=== PATIENT | male | born 1960 | race Caucasian/White ===

== ENCOUNTER 2016-11-10 08:54 | Inpatient (IN) | payer MEDICAID ==
[~2016-11-10] VITALS: Ht 172.7 cm; Wt 68.0 kg
[2016-11-10] MEDS ORDERED: TdaP Vaccine 0.5ml Syr IM ONE (09:00)
[2016-11-10 09:30] VITALS: BP 123/83
--- NOTE | 2016-11-10 09:32 | Emergency Room Report ---
History of Present Illness General Chief Complaint: Alcohol Intoxication Source: Patient Present Illness [facility] paramedics were called to a business because a man in front of business was altered. Downgraded to [facility] and brought patient to us. They claim that the patient denies all symptoms. He's been drinking alcohol. The patient does deny pain, headache, seizures, vomiting, diarrhea, melena, chest pain, cough. He will not state what he drinks and how much. He does admit that he has been drinking alcohol. He also states he is hungry. Allergies: Coded Allergies: No Known Allergies (Unverified , 11/10/16) Patient History Past Medical History: see triage record Social History: Reports: alcohol use Social History Narrative homeless Reviewed Nursing Documentation: PMH: Agreed, PSxH: Agreed Nursing Documentation-PMH Past Medical History: No Stated History Review of Systems All Other Systems: limited Physical Exam Vital Signs Date Time Temp Pulse Resp B/P Pulse Ox O2 Delivery O2 Flow Rate FiO2 11/10/16 08:52 95.7 67 18 98/9 94 Room Air Sp02 EP Interpretation: reviewed, normal General Appearance: no apparent distress, alert, non-toxic, other - dishevelled , Chronically Ill Head: normocephalic, other - old scab nose Eyes: bilateral eye PERRL, bilateral eye Scleral Injection ENT: moist mucus membranes Neck: supple Respiratory: chest non-tender, lungs clear, normal breath sounds Cardiovascular #1: regular rate, rhythm Cardiovascular #2: 2+ radial (R) Gastrointestinal: normal inspection, normal bowel sounds, non tender, no mass, non-distended Rectal: heme negative stool Musculoskeletal: back normal, normal range of motion Neurologic: alert, motor strength/tone normal, SLR negative, sensory intact, speech normal, oriented - OX2 Psychiatric: depressed affect Skin: pallor, other - scabetic lesions Procedures Critical Care Time Critical Care Time Total Critical Care Time: 30 min bedside evaluation and treatment excludes procedures (EKG). Reason for critical care: profound anemia, alcohol withdrawal, repeated evaluations. Possible complications: hypotension, hypertension, IA, shock, arrhythmias, metabolic acidosis, end organ damage, respiratory failure. Interventions: IV hydration, thiamine, blood transfusion Course: Patient presents with ALOC and alleged alcohol intoxication. Evaluation reveals profound anemia with negative stools. Treated with IV hydration and blood ordered. Transfused in ED. Tolerated blood. Some improvement. Patient risk for withdrawal. Consultations: nursing staff, EMS, blood bank, admitting MD Performed by: Dr. Orlando Tolerated well condition = serious Medical Decision Making Diagnostic Impression: Primary Impression: Profound anemia Qualified Codes: D64.9 - Anemia, unspecified Additional Impressions: Acute alcoholic intoxication Qualified Codes: F10.929 - Alcohol use, unspecified with intoxication, unspecified Scabies ER Course Patient brought with alleged alcohol intoxication. DDx: alcohol, head trauma, electrolyte abnormalities, withdrawal, Wernicke's encephalopathy amongst others. Evaluation with EKG, CT, CXR, labs. Treatment with IV hydration and thiamine. Patient also treated for scabies. Also tetanus given. Labs with profound anemia. Start to set up for transfusions though repeating lab. Platelets normal. K slightly low. BA 108. Patient without evidence of GI blood loss at this time. Transfusing patient. Improved mentation. Eating. Admit [facility] Dr. Aleman. Laboratory Tests Test 11/10/16 10:00 11/10/16 12:15 Erythrocyte Sedimentation Rate 145 MM/HR (0-20) H Reticulocyte Count 3.0 % (0.0-2.0) H Prothrombin Time 12.2 SEC (9.30-11.50) H Prothrombin Time INR 1.2 (0.9-1.1) H PTT 31 SEC (23-33) Sodium Level 135 mEQ/L (135-145) Potassium Level 3.1 mEQ/L (3.4-4.9) L Chloride Level 95 mEQ/L (98-107) L Carbon Dioxide Level 27 mEQ/L (20-30) Anion Gap 13 (5-15) Blood Urea Nitrogen 10 mg/dL (7-23) Creatinine 0.9 mg/dL (0.7-1.2) Estimate Glomerular Filtration Rate > 60 mL/min (>60) Glucose Level 91 mg/dL (74-106) Calcium Level 8.2 mg/dL (8.6-10.2) L Iron Level < 10 ug/dL (59-158) L Total Iron Binding Capacity 240 ug/dL (250-400) L Percent Iron Saturation 4 % (15-50) L Unsaturated Iron Binding 230 ug/dL (112-346) Total Bilirubin < 0.2 mg/dL (0.0-1.2) Aspartate Amino Transferase (AST) 112 U/L (5-40) H Alanine Aminotransferase (ALT) 53 U/L (3-41) H Alkaline Phosphatase 132 U/L (40-129) H Lactate Dehydrogenase 368 U/L (135-230) H Total Protein 6.8 g/dL (6.6-8.7) Albumin 2.2 g/dL (3.5-5.2) L Globulin 4.6 g/dL Albumin/Globulin Ratio 0.4 (1.0-2.7) L Carcinoembryonic Antigen 5.9 ng/mL H Vitamin B12 Level 771 pg/mL (211-946) Folate Pending Salicylates Level < 1 mg/dL (10-30) L Acetaminophen Level < 10 ug/mL (10-30) L Serum Alcohol 108 mg/dL White Blood Count 8.3 K/UL (4.8-10.8) Red Blood Count 1.56 M/UL (4.70-6.10) L Hemoglobin 4.4 G/DL (14.2-18.0) *L Hematocrit 15.1 % (42.0-52.0) L Mean Corpuscular Volume 97 FL (80-99) Mean Corpuscular Hemoglobin 28.1 PG (27.0-31.0) Mean Corpuscular Hemoglobin Concent 29.1 G/DL (32.0-36.0) L Red Cell Distribution Width 15.7 % (11.6-14.8) H Platelet Count 338 K/UL (150-450) Mean Platelet Volume 6.0 FL (6.5-10.1) L Neutrophils (%) (Auto) % (45.0-75.0) Lymphocytes (%) (Auto) % (20.0-45.0) Monocytes (%) (Auto) % (1.0-10.0) Eosinophils (%) (Auto) % (0.0-3.0) Basophils (%) (Auto) % (0.0-2.0) Differential Total Cells Counted 100 Neutrophils % (Manual) 77 % (45-75) H Lymphocytes % (Manual) 13 % (20-45) L Monocytes % (Manual) 3 % (1-10) Eosinophils % (Manual) 7 % (0-3) H Basophils % (Manual) 0 % (0-2) Band Neutrophils 0 % (0-8) Platelet Estimate Adequate Platelet Morphology Normal Hypochromasia 3+ Anisocytosis 1+ EKG Diagnostic Results Rate: normal Rhythm: NSR ST Segments: other - R axis Rhythm Strip Diag. Results EP Interpretation: yes Rhythm: NSR, no PVC's, no ectopy Chest X-Ray Diagnostic Results EP Interpretation: Yes Findings: no effusion, no pneumothorax, other - scarring and increased bravo R` ` Number of Views: 1 Last Vital Signs Date Time Temp Pulse Resp B/P Pulse Ox O2 Delivery O2 Flow Rate FiO2 11/11/16 00:00 98 11/11/16 00:00 98.3 16 94/57 96 Room Air Status: improved Disposition: ADMITTED INPATIENT Condition: Serious Referrals: NON PHYSICIAN (PCP) Sarath Orlando M.D. November 10, 2016 09:32
--- NOTE | 2016-11-10 10:17 | Diagnostic Imaging Report ---
Indications: Altered mental status Technique: Spiral acquisitions obtained through the brain. Angled axial and coronal 5 x 5 mm slices were reconstructed. Total dose length product 1393 mGycm. CTDI vol(s) 70 mGy. Dose reduction achieved using automated exposure control Comparison: None Findings: No acute intracranial hemorrhage or edema, mass effect, or midline shift. There is prominence of the ventricles and extra-axial CSF spaces, to proportion to age. There is periventricular deep white matter chronic ischemic change. Intact calvarium. Visualized orbits and sinuses are unremarkable. Impression: Chronic and age-related changes, advanced for patient's age. Negative for acute intracranial bleed or mass effect. The CT scanner at [facility] is accredited by the [employer] and the scans are performed using protocols designed to limit radiation exposure to as low as reasonably achievable to attain images of sufficient resolution adequate for diagnostic evaluation.
[2016-11-10 11:23] LABS: ACETAMINOPHEN < 10 ug/mL (10-30); ALANINE AMINOTRANSFERASE 53 U/L (3-41); ALBUMIN/GLOBULIN RATIO 0.4 (1.0-2.7); ALCOHOL 108 mg/dL; ANION GAP 13 (5-15); ASPARTATE AMINO TRANSFERASE 112 U/L (5-40); CALCIUM 8.2 mg/dL (8.6-10.2); CARBON DIOXIDE 27 mEQ/L (20-30); CHLORIDE 95 mEQ/L (98-107); CREATININE 0.9 mg/dL (0.7-1.2); GLOMERULAR FILTRATION RATE > 60 mL/min (>60); HEMOLYSIS 0; POTASSIUM 3.1 mEQ/L (3.4-4.9); SODIUM 135 mEQ/L (135-145); TOTAL PROTEIN 6.8 g/dL (6.6-8.7)
[2016-11-10] MEDS ORDERED: Thiamine HCl 100mg/ml Inj ONE (11:34)
[2016-11-10] MEDS: Thiamine HCl 100 MG in D5W 55 ML IVPB SCH (11:35)
[2016-11-10 12:15] VITALS: BP 92/60
[2016-11-10 12:27] LABS: MEAN CORPUSCULAR HEMOGLOBIN 28.1 PG (27.0-31.0); MEAN CORPUSCULAR HGB CONC 29.1 G/DL (32.0-36.0); MEAN CORPUSCULAR VOLUME 97 FL (80-99); PLATELET COUNT 338 K/UL (150-450); RED BLOOD COUNT 1.56 M/UL (4.70-6.10); RED CELL DISTRIBUTION WIDTH 15.7 % (11.6-14.8); WHITE BLOOD COUNT 8.3 K/UL (4.8-10.8)
[2016-11-10] MEDS ORDERED: NKM (12:44)
[2016-11-10 12:54] LABS: EOSINOPHILS % (MANUAL) 7 % (0-3); LYMPHOCYTES % (MANUAL) 13 % (20-45); NEUTROPHILS % (MANUAL) 77 % (45-75); TOTAL CELLS COUNTED 100
[2016-11-10 12:55] LABS: BAND NEUTROPHILS % (MANUAL) 0 % (0-8); BASOPHILS % (MANUAL) 0 % (0-2); HYPOCHROMASIA 3+; PLATELET ESTIMATE ADEQUATE; PLATELET MORPHOLOGY NORMAL
[2016-11-10 12:56] LABS: ANISOCYTOSIS 1+
[2016-11-10] MEDS ORDERED: LORazepam Inj 2mg/ml 1ml IV PRN (13:15)
[2016-11-10] MEDS ORDERED: Mylanta II UD 30ml ORAL PRN (13:15)
[2016-11-10] MEDS ORDERED: Morphine Sulfate 2mg/ml Inj IVP PRN (13:15)
[2016-11-10 13:29] LABS: INR 1.2 (0.9-1.1); PROTHROMBIN TIME 12.2 SEC (9.30-11.50)
[2016-11-10 13:38] LABS: PATH BLOOD SMEAR/OMC SENT TO PATHOLOGIST
[2016-11-10 14:05] LABS: HEMOLYSIS 0; IRON < 10 ug/dL (59-158); TOTAL IRON BINDING CAPACITY 240 ug/dL (250-400)
[2016-11-10 14:29] LABS: ERYTHROCYTE SEDIMENTATION RATE 145 MM/HR (0-20)
[2016-11-10 15:26] LABS: LACTATE DEHYDROGENASE 368 U/L (135-230)
[2016-11-10 17:30] VITALS: BP 133/65
[2016-11-10] MEDS ORDERED: KCl 10% 40mEq/30ml liquid ORAL ONE (18:30)
--- NOTE | 2016-11-10 19:08 | History and Physical ---
History of Present Illness General Reason for Hospitalization: Alcohol Intoxication Present Illness HPI 56 year old homeless male brought in by paramedics for was altered level of consciousness. He's been drinking alcohol. His hem was 4. He is admitted to [facility] for further evaluation. Allergies: Coded Allergies: No Known Allergies (Unverified , 11/10/16) Medication History Scheduled No Known Medications* (NKM - No Known Medications*), 0 ., (Reported) Patient History Healthcare decision maker Resuscitation status Full Code Advanced Directive on File No Past Medical/Surgical History Past Medical/Surgical History: (1) Homelessness Review of Systems All Other Systems: negative except mentioned in HPI Physical Exam General Appearance: WD/WN Lines, tubes and drains: peripheral HEENT: normocephalic, anicteric Neck: non-tender, normal alignment Respiratory/Chest: chest wall non-tender, lungs clear Cardiovascular/Chest: normal peripheral pulses, normal rate Abdomen: normal bowel sounds, non tender Genitourinary/Rectal: normal genital exam, normal rectal exam Last 24 Hour Vital Signs Date Time Temp Pulse Resp B/P Pulse Ox O2 Delivery O2 Flow Rate FiO2 11/10/16 17:30 98.2 102 18 133/65 96 Room Air 11/10/16 17:30 98 11/10/16 16:51 96 16 104/60 98 11/10/16 14:00 98.7 96 20 11/10/16 12:15 101 18 92/60 99 Room Air 11/10/16 09:30 79 18 123/83 99 Room Air 11/10/16 08:52 95.7 67 18 98/9 94 Room Air Laboratory Tests Test 11/10/16 10:00 11/10/16 12:15 Erythrocyte Sedimentation Rate 145 MM/HR (0-20) H Reticulocyte Count 3.0 % (0.0-2.0) H Prothrombin Time 12.2 SEC (9.30-11.50) H Prothromb Time International Ratio 1.2 (0.9-1.1) H Activated Partial Thromboplast Time 31 SEC (23-33) Sodium Level 135 mEQ/L (135-145) Potassium Level 3.1 mEQ/L (3.4-4.9) L Chloride Level 95 mEQ/L (98-107) L Carbon Dioxide Level 27 mEQ/L (20-30) Anion Gap 13 (5-15) Blood Urea Nitrogen 10 mg/dL (7-23) Creatinine 0.9 mg/dL (0.7-1.2) Estimat Glomerular Filtration Rate > 60 mL/min (>60) Glucose Level 91 mg/dL (74-106) Calcium Level 8.2 mg/dL (8.6-10.2) L Iron Level < 10 ug/dL (59-158) L Total Iron Binding Capacity 240 ug/dL (250-400) L Percent Iron Saturation 4 % (15-50) L Unsaturated Iron Binding 230 ug/dL (112-346) Total Bilirubin < 0.2 mg/dL (0.0-1.2) Aspartate Amino Transf (AST/SGOT) 112 U/L (5-40) H Alanine Aminotransferase (ALT/SGPT) 53 U/L (3-41) H Alkaline Phosphatase 132 U/L (40-129) H Lactate Dehydrogenase 368 U/L (135-230) H Total Protein 6.8 g/dL (6.6-8.7) Albumin 2.2 g/dL (3.5-5.2) L Globulin 4.6 g/dL Albumin/Globulin Ratio 0.4 (1.0-2.7) L Carcinoembryonic Antigen 5.9 ng/mL H Vitamin B12 Level 771 pg/mL (211-946) Folate Pending Salicylates Level < 1 mg/dL (10-30) L Acetaminophen Level < 10 ug/mL (10-30) L Serum Alcohol 108 mg/dL White Blood Count 8.3 K/UL (4.8-10.8) Red Blood Count 1.56 M/UL (4.70-6.10) L Hemoglobin 4.4 G/DL (14.2-18.0) *L Hematocrit 15.1 % (42.0-52.0) L Mean Corpuscular Volume 97 FL (80-99) Mean Corpuscular Hemoglobin 28.1 PG (27.0-31.0) Mean Corpuscular Hemoglobin Concent 29.1 G/DL (32.0-36.0) L Red Cell Distribution Width 15.7 % (11.6-14.8) H Platelet Count 338 K/UL (150-450) Mean Platelet Volume 6.0 FL (6.5-10.1) L Neutrophils (%) (Auto) % (45.0-75.0) Lymphocytes (%) (Auto) % (20.0-45.0) Monocytes (%) (Auto) % (1.0-10.0) Eosinophils (%) (Auto) % (0.0-3.0) Basophils (%) (Auto) % (0.0-2.0) Differential Total Cells Counted 100 Neutrophils % (Manual) 77 % (45-75) H Lymphocytes % (Manual) 13 % (20-45) L Monocytes % (Manual) 3 % (1-10) Eosinophils % (Manual) 7 % (0-3) H Basophils % (Manual) 0 % (0-2) Band Neutrophils 0 % (0-8) Platelet Estimate Adequate Platelet Morphology Normal Hypochromasia 3+ Anisocytosis 1+ Height (Feet): 5 Height (Inches): 8.00 Weight (Pounds): 150 Medications Current Medications Medications (Trade) Dose Ordered Sig/Courtney Route PRN Reason Start Time Stop Time Status Last Admin Dose Admin Acetaminophen (Tylenol) 650 mg Q4H PRN ORAL T>100.5 11/10/16 13:15 12/10/16 13:14 Al Hydroxide/Mg Hydroxide (Mylanta II) 30 ml Q6H PRN ORAL dyspepsia 11/10/16 13:15 12/10/16 13:14 Dextrose (Dextrose 50%) STAT PRN IV Hypoglycemia 11/10/16 13:15 12/10/16 13:14 Lorazepam (Ativan 2mg/ml 1ml) 0.5 mg Q4H PRN IV For Anxiety 11/10/16 13:15 11/17/16 13:14 Morphine Sulfate (Morphine Sulfate) 1 mg Q4H PRN IVP PAIN 4-10 11/10/16 13:15 11/17/16 13:14 Ondansetron HCl (Zofran) 4 mg Q6H PRN IVP Nausea & Vomiting 11/10/16 14:00 12/10/16 13:59 Polyethylene Glycol (Miralax) 17 gm HSPRN PRN ORAL Constipation 11/10/16 21:00 12/10/16 20:59 Sodium Chloride (Sodium Chloride 1000ml bag) 1,000 ml @ 300 mls/hr Q3H20M IV 11/10/16 09:00 12/10/16 08:59 11/10/16 11:35 Thiamine HCl 100 mg/Dextrose 56 ml @ 112 mls/hr Q24H IVPB 11/10/16 09:00 12/10/16 08:59 11/10/16 11:35 Zolpidem Tartrate (Ambien) 5 mg HSPRN PRN ORAL Insomnia 11/10/16 21:00 12/10/16 20:59 Assessment/Plan Problem List: (1) Profound anemia ICD Codes: D64.9 - Anemia, unspecified SNOMED: [id number] Qualifiers: Qualified Codes: D64.9 - Anemia, unspecified (2) Acute alcoholic intoxication ICD Codes: F10.929 - Alcohol use, unspecified with intoxication, unspecified SNOMED: 35670689, [id number], [id number] Qualifiers: Qualified Codes: F10.929 - Alcohol use, unspecified with intoxication, unspecified Assessment/Plan prbc check h/h in am 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 banana bag thiamine and Librium AMENA CLARK November 10, 2016 19:08
[2016-11-10 19:58] VITALS: BP 122/62
[2016-11-10] MEDS ORDERED: Zolpidem 5mg tab ORAL PRN (21:00)
[2016-11-10] MEDS ORDERED: Miralax 17gm pkt ORAL PRN (21:00)
[2016-11-11] VITALS: BP 94/57
[2016-11-11 04:00] VITALS: BP 110/65
[2016-11-11 08:00] VITALS: BP 106/64
--- NOTE | 2016-11-11 10:12 | Pulmonology Progress Note ---
Assessment/Plan Problems: (1) Profound anemia (2) Acute alcoholic intoxication (3) Homelessness Assessment/Plan prbc times three banana bag, thiamine, folic acid social sciences research scientist pt/ot dc planning Subjective ROS Limited/Unobtainable: No Allergies: Coded Allergies: No Known Allergies (Unverified , 11/10/16) Objective Last 24 Hour Vital Signs Date Time Temp Pulse Resp B/P Pulse Ox O2 Delivery O2 Flow Rate FiO2 11/11/16 08:00 95 11/11/16 08:00 98.2 94 18 106/64 96 Room Air 11/11/16 04:00 96 11/11/16 04:00 98.4 96 18 110/65 96 Room Air 11/11/16 00:00 98 11/11/16 00:00 98.3 97 16 94/57 96 Room Air 11/10/16 19:58 98.4 96 18 122/62 95 Room Air 11/10/16 19:47 95 11/10/16 17:30 98.2 102 18 133/65 96 Room Air 11/10/16 17:30 98 11/10/16 16:51 96 16 104/60 98 11/10/16 14:00 98.7 96 20 11/10/16 13:40 97.2 90 17 11/10/16 12:15 101 18 92/60 99 Room Air Intake and Output 11/10/16 11/11/16 19:00 07:00 Intake Total 400 ml 100 ml Output Total 450 ml Balance 400 ml -350 ml Intake Oral 50 ml 100 ml IV Total 50 ml Blood Product 300 ml Output Urine Total 450 ml # Voids 1 Objective General Appearance: WD/WN Lines, tubes and drains: peripheral HEENT: normocephalic, anicteric Neck: non-tender, normal alignment Respiratory/Chest: chest wall non-tender, lungs clear Cardiovascular/Chest: normal peripheral pulses, normal rate Abdomen: normal bowel sounds, non tender Genitourinary/Rectal: normal genital exam, normal rectal exam Laboratory Tests 11/10/16 12:15: White Blood Count 8.3, Red Blood Count 1.56L, Hemoglobin 4.4*L, Hematocrit 15.1L , Mean Corpuscular Volume 97, Mean Corpuscular Hemoglobin 28.1, Mean Corpuscular Hemoglobin Concent 29.1L, Red Cell Distribution Width 15.7H, Platelet Count 338, Mean Platelet Volume 6.0L, Neutrophils (%) (Auto) , Lymphocytes (%) (Auto) , Monocytes (%) (Auto) , Eosinophils (%) (Auto) , Basophils (%) (Auto) , Differential Total Cells Counted 100, Neutrophils % ( Manual) 77H, Lymphocytes % (Manual) 13L, Monocytes % (Manual) 3, Eosinophils % ( Manual) 7H, Basophils % (Manual) 0, Band Neutrophils 0, Platelet Estimate Adequate, Platelet Morphology Normal, Hypochromasia 3+, Anisocytosis 1+ Current Medications Medications (Trade) Dose Ordered Sig/Courtney Route PRN Reason Start Time Stop Time Status Last Admin Dose Admin Acetaminophen (Tylenol) 650 mg Q4H PRN ORAL T>100.5 11/10/16 13:15 12/10/16 13:14 Al Hydroxide/Mg Hydroxide (Mylanta II) 30 ml Q6H PRN ORAL dyspepsia 11/10/16 13:15 12/10/16 13:14 Dextrose (Dextrose 50%) STAT PRN IV Hypoglycemia 11/10/16 13:15 12/10/16 13:14 Lorazepam (Ativan 2mg/ml 1ml) 0.5 mg Q4H PRN IV For Anxiety 11/10/16 13:15 11/17/16 13:14 Morphine Sulfate (Morphine Sulfate) 1 mg Q4H PRN IVP PAIN 4-10 11/10/16 13:15 11/17/16 13:14 Ondansetron HCl (Zofran) 4 mg Q6H PRN IVP Nausea & Vomiting 11/10/16 14:00 12/10/16 13:59 Polyethylene Glycol (Miralax) 17 gm HSPRN PRN ORAL Constipation 11/10/16 21:00 12/10/16 20:59 Thiamine HCl/ Dextrose (Vitamin B1/D5W) 56 ml @ 112 mls/hr Q24H IVPB 11/10/16 09:00 12/10/16 08:59 11/10/16 11:35 Zolpidem Tartrate (Ambien) 5 mg HSPRN PRN ORAL Insomnia 11/10/16 21:00 12/10/16 20:59 11/11/16 00:53 AMENA CLARK November 11, 2016 10:12
[2016-11-11] MEDS ORDERED: chlordiazePOXIDE 25mg Cap ORAL PRN ×2 (10:15→17:30)
[2016-11-11] MEDS: Thiamine HCl 100 MG in D5W 55 ML IVPB SCH (10:23)
[2016-11-11 10:25] LABS: MEAN CORPUSCULAR HEMOGLOBIN 29.3 PG (27.0-31.0); MEAN CORPUSCULAR HGB CONC 32.8 G/DL (32.0-36.0); MEAN CORPUSCULAR VOLUME 89 FL (80-99); MEAN PLATELET VOLUME 6.1 FL (6.5-10.1); PLATELET COUNT 286 K/UL (150-450); RED BLOOD COUNT 2.84 M/UL (4.70-6.10); RED CELL DISTRIBUTION WIDTH 15.1 % (11.6-14.8); WHITE BLOOD COUNT 10.6 K/UL (4.8-10.8)
[2016-11-11 10:30] LABS: INR 1.2 (0.9-1.1); PROTHROMBIN TIME 12.1 SEC (9.30-11.50)
[2016-11-11 10:47] LABS: ALANINE AMINOTRANSFERASE 55 U/L (3-41); ALBUMIN/GLOBULIN RATIO 0.5 (1.0-2.7); ANION GAP 12 (5-15); ASPARTATE AMINO TRANSFERASE 121 U/L (5-40); CARBON DIOXIDE 27 mEQ/L (20-30); CHLORIDE 97 mEQ/L (98-107); CREATININE 0.9 mg/dL (0.7-1.2); GLOMERULAR FILTRATION RATE > 60 mL/min (>60); HEMOLYSIS 0; POTASSIUM 3.5 mEQ/L (3.4-4.9); SODIUM 136 mEQ/L (135-145); TOTAL PROTEIN 6.8 g/dL (6.6-8.7)
[2016-11-11 10:48] LABS: HEMOLYSIS 1; IRON 98 ug/dL (59-158); TOTAL IRON BINDING CAPACITY 218 ug/dL (250-400)
--- NOTE | 2016-11-11 10:51 | Diagnostic Imaging Report ---
Indication: Chest pain Technique: One view of the chest Comparison: none Findings: Questionable tiny calcified granuloma in the left midlung. Lungs and pleural spaces are otherwise clear. Heart size is normal. Impression: Questionable left midlung old granulomatous disease. No acute process otherwise
[2016-11-11 11:18] LABS: ANISOCYTOSIS 1+; BAND NEUTROPHILS % (MANUAL) 0 % (0-8); BASOPHILS % (MANUAL) 0 % (0-2); EOSINOPHILS % (MANUAL) 1 % (0-3); HYPOCHROMASIA 1+; LYMPHOCYTES % (MANUAL) 7 % (20-45); NEUTROPHILS % (MANUAL) 86 % (45-75); PLATELET ESTIMATE ADEQUATE; PLATELET MORPHOLOGY NORMAL; POLYCHROMASIA OCCASIONAL; TOTAL CELLS COUNTED 100
[2016-11-11 11:19] LABS: PATH BLOOD SMEAR/OMC SENT TO PATHOLOGIST; RETICULOCYTE COUNT 1.7 % (0.0-2.0)
[2016-11-11 11:31] LABS: ERYTHROCYTE SEDIMENTATION RATE 100 MM/HR (0-20)
[2016-11-11 12:00] VITALS: BP 109/73
[2016-11-11] MEDS ORDERED: MVI IV SCH ×4 (12:00)
[2016-11-11] MEDS ORDERED: [UNRECOGNIZED DRUG - OTHER] IV SCH ×4 (12:00)
[2016-11-11] MEDS ORDERED: FOLIC ACID IV SCH ×4 (12:00)
[2016-11-11] MEDS ORDERED: KCL IV SCH ×4 (12:00)
[2016-11-11] MEDS ORDERED: NS IV SCH ×4 (12:00)
--- NOTE | 2016-11-11 14:05 | Wound Care Consultation ---
Wound Assessment Wound Assessment : Wound Present on Admission: Yes New Wound: No Status Change of Wound: No Wound Location Body Site Modif: other - generized Wound Location Body Site: other Wound Type: scab Adrianne Test: Does not Adrianne Wound Thickness: Full Thickness Wound Drainage Amount: None Wound Drainage Odor: None/Absent Tissue Surrounding Wound: Intact Wound General Appearance: Reddened Wound Comment #1 Generalized multiple dry scabs and self inflicted scratches Recommendation -Keep clean and dry -Assess and f/u accordingly for any changes KARON DUDLEY RN November 11, 2016 14:05
[2016-11-11] MEDS ORDERED: DiphenhydrAMINE & Zinc 28g Cream TOPIC PRN ×2 (15:00→17:30)
[2016-11-11 16:00] VITALS: BP 120/80
--- NOTE | 2016-11-11 16:53 | Cardiology Report ---
APPROVED REPORT EKG Measurement Heart [id number] Normal sinus rhythm Rightward axis Nonspecific T wave abnormality Abnormal ECG
[2016-11-11] MEDS ORDERED: LORazepam Inj 2mg/ml 1ml IV PRN (17:15)
[2016-11-11] MEDS ORDERED: Morphine Sulfate 2mg/ml Inj IVP PRN (17:15)
[2016-11-11] MEDS ORDERED: Mylanta II UD 30ml ORAL PRN (17:30)
[2016-11-11 20:00] VITALS: BP 90/50
[2016-11-11] MEDS ORDERED: Miralax 17gm pkt ORAL PRN (21:00)
[2016-11-11] MEDS ORDERED: Zolpidem 5mg tab ORAL PRN (21:00)
[2016-11-12] VITALS: BP 110/71
[2016-11-12 04:00] VITALS: BP 112/66
[2016-11-12 07:02] LABS: MEAN CORPUSCULAR HEMOGLOBIN 29.8 PG (27.0-31.0); MEAN CORPUSCULAR HGB CONC 32.9 G/DL (32.0-36.0); MEAN CORPUSCULAR VOLUME 91 FL (80-99); MEAN PLATELET VOLUME 6.3 FL (6.5-10.1); PLATELET COUNT 272 K/UL (150-450); RED BLOOD COUNT 2.61 M/UL (4.70-6.10); WHITE BLOOD COUNT 9.4 K/UL (4.8-10.8)
[2016-11-12 07:03] LABS: INR 1.2 (0.9-1.1); PROTHROMBIN TIME 11.9 SEC (9.30-11.50)
[2016-11-12 07:20] LABS: ALANINE AMINOTRANSFERASE 47 U/L (3-41); ALBUMIN/GLOBULIN RATIO 0.4 (1.0-2.7); ANION GAP 13 (5-15); ASPARTATE AMINO TRANSFERASE 88 U/L (5-40); CALCIUM 8.1 mg/dL (8.6-10.2); CARBON DIOXIDE 26 mEQ/L (20-30); CHLORIDE 95 mEQ/L (98-107); CREATININE 0.8 mg/dL (0.7-1.2); GLOMERULAR FILTRATION RATE > 60 mL/min (>60); HEMOLYSIS 2; MAGNESIUM 1.8 mg/dL (1.7-2.5); PHOSPHORUS 2.9 mg/dL (2.5-4.8); SODIUM 134 mEQ/L (135-145); TOTAL PROTEIN 6.7 g/dL (6.6-8.7)
[2016-11-12 08:00] VITALS: BP 107/56
[2016-11-12 09:20] LABS: ANISOCYTOSIS 1+; BAND NEUTROPHILS % (MANUAL) 0 % (0-8); BASOPHILS % (MANUAL) 0 % (0-2); EOSINOPHILS % (MANUAL) 1 % (0-3); HYPOCHROMASIA 1+; LYMPHOCYTES % (MANUAL) 17 % (20-45); NEUTROPHILS % (MANUAL) 77 % (45-75); PLATELET ESTIMATE ADEQUATE; PLATELET MORPHOLOGY NORMAL; TOTAL CELLS COUNTED 100
[2016-11-12] MEDS ORDERED: NS 275ml ONE (09:58)
[2016-11-12 12:00] VITALS: BP 113/68
[2016-11-12] MEDS ORDERED: Folic Acid 1 MG, Magnesium Sulfate 2,000 MG, Multivitamin - 12 Injection 10 ML in NS w/... IV SCH (12:00)
[2016-11-12] MEDS ORDERED: Thiamine HCl 100 MG in D5W 55 ML IVPB SCH (12:00)
--- NOTE | 2016-11-12 14:56 | GI Initial Consult Note ---
History of Present Illness General Date patient seen: Nov 12, 2016 Time patient seen: 14:43 Reason for Hospitalization: Alcohol Intoxication Referring physician: AMENA WRIGHT Reason for Consultation: GI BLEED Present Illness HPI [facility] paramedics were called to a business because a man in front of business was altered. Downgraded to BLS and brought patient to us. They claim that the patient denies all symptoms. He's been drinking alcohol. The patient does deny pain, headache, seizures, vomiting, diarrhea, melena, chest pain, cough. He will not state what he drinks and how much. He does admit that he has been drinking alcohol. He also states he is hungry. GI CONSULT. HPI noted above. GI consulted for profound anemia with Hgb 4.4. Pt seen on floor, awake A&O NAD with no active s/sx of N/V/D. No general GI complaints from the patient at this time. Patient has hx of ETOH abuse admits to drinking heavily at times but does not state for how long. He presents today with anemia Hgb 7.8 s/p 3 units of blood and transaminitis. The patient denies any history of any endoscopic procedures. Home Meds Reported Medications No Known Medications* (NKM - No Known Medications*) ., 0 ., 0 Refills 11/10/16 Med list reviewed/reconciled: Yes Allergies: Coded Allergies: No Known Allergies (Unverified , 11/10/16) Patient History History Provided By: Patient, Medical Record PMH Narrative Past Medical History: see triage record Social History: Reports: alcohol use Social History Narrative homeless Reviewed Nursing Documentation: PMH: Agreed, PSxH: Agreed Nursing Documentation-[facility] Past Medical History: Limited, denies any Stated History Social History: Reports: alcohol use, drug use, smoking Review of Systems All Other Systems: negative except mentioned in HPI Physical Exam Vital Signs Date Time Temp Pulse Resp B/P Pulse Ox O2 Delivery O2 Flow Rate FiO2 11/10/16 08:52 95.7 67 18 98/9 94 Room Air Sp02 EP Interpretation: reviewed Labs Laboratory Tests Test 11/12/16 05:30 White Blood Count 9.4 K/UL (4.8-10.8) Red Blood Count 2.61 M/UL (4.70-6.10) L Hemoglobin 7.8 G/DL (14.2-18.0) L Hematocrit 23.7 % (42.0-52.0) L Mean Corpuscular Volume 91 FL (80-99) Mean Corpuscular Hemoglobin 29.8 PG (27.0-31.0) Mean Corpuscular Hemoglobin Concent 32.9 G/DL (32.0-36.0) Red Cell Distribution Width 15.0 % (11.6-14.8) H Platelet Count 272 K/UL (150-450) Mean Platelet Volume 6.3 FL (6.5-10.1) L Neutrophils (%) (Auto) % (45.0-75.0) Lymphocytes (%) (Auto) % (20.0-45.0) Monocytes (%) (Auto) % (1.0-10.0) Eosinophils (%) (Auto) % (0.0-3.0) Basophils (%) (Auto) % (0.0-2.0) Differential Total Cells Counted 100 Neutrophils % (Manual) 77 % (45-75) H Lymphocytes % (Manual) 17 % (20-45) L Monocytes % (Manual) 5 % (1-10) Eosinophils % (Manual) 1 % (0-3) Basophils % (Manual) 0 % (0-2) Band Neutrophils 0 % (0-8) Platelet Estimate Adequate Platelet Morphology Normal Hypochromasia 1+ Anisocytosis 1+ Prothrombin Time 11.9 SEC (9.30-11.50) H Prothromb Time International Ratio 1.2 (0.9-1.1) H Activated Partial Thromboplast Time 31 SEC (23-33) Sodium Level 134 mEQ/L (135-145) L Potassium Level 4.0 mEQ/L (3.4-4.9) Chloride Level 95 mEQ/L (98-107) L Carbon Dioxide Level 26 mEQ/L (20-30) Anion Gap 13 (5-15) Blood Urea Nitrogen 9 mg/dL (7-23) Creatinine 0.8 mg/dL (0.7-1.2) Estimat Glomerular Filtration Rate > 60 mL/min (>60) Glucose Level 75 mg/dL (74-106) Calcium Level 8.1 mg/dL (8.6-10.2) L Phosphorus Level 2.9 mg/dL (2.5-4.8) Magnesium Level 1.8 mg/dL (1.7-2.5) Total Bilirubin 0.4 mg/dL (0.0-1.2) Aspartate Amino Transf (AST/SGOT) 88 U/L (5-40) H Alanine Aminotransferase (ALT/SGPT) 47 U/L (3-41) H Alkaline Phosphatase 110 U/L (40-129) Total Protein 6.7 g/dL (6.6-8.7) Albumin 2.1 g/dL (3.5-5.2) L Globulin 4.6 g/dL Albumin/Globulin Ratio 0.4 (1.0-2.7) L General Appearance: well appearing, no apparent distress, alert Head: normocephalic EENT: normal ENT inspection Neck: supple Respiratory: normal breath sounds, no respiratory distress Cardiovascular: normal rate Gastrointestinal: soft Genitourinary: no CVA tenderness Neurologic: normal inspection, alert, oriented x3, responsive Psychiatric: normal inspection, judgement/insight normal, memory normal Skin: normal inspection, normal color, no rash Lymphatic: normal inspection, no adenopathy Current Medications Current Medications Medications (Trade) Dose Ordered Sig/Courtney Route PRN Reason Start Time Stop Time Status Last Admin Dose Admin Acetaminophen (Tylenol) 650 mg Q4H PRN ORAL T>100.5 11/11/16 17:15 12/11/16 17:14 Al Hydroxide/Mg Hydroxide (Mylanta II) 30 ml Q6H PRN ORAL dyspepsia 11/11/16 17:30 12/11/16 17:29 Chlordiazepoxide (Librium) 25 mg Q6H PRN ORAL Agitation 11/11/16 17:30 11/18/16 17:29 Dextrose (Dextrose 50%) STAT PRN IV Hypoglycemia 11/11/16 17:30 12/11/16 17:29 Diphenhydramine HCl (Benadryl Cream) 1 applic TIDPRN PRN TOPIC Itching 11/11/16 17:30 12/11/16 17:29 Diphenhydramine HCl (Benadryl) 25 mg Q6H PRN ORAL Itching 11/11/16 17:30 12/11/16 17:29 Folic Acid 1 mg/ Magnesium Sulfate 2000 mg/ Multivitamins 10 ml/Sodium Chloride 1,014.2 ml @ 125 mls/ hr Q24H IV 6/1/17 12:00 12/12/16 11:59 11/12/16 14:23 Lorazepam (Ativan 2mg/ml 1ml) 0.5 mg Q4H PRN IV For Anxiety 11/11/16 17:15 11/18/16 17:14 Morphine Sulfate (Morphine Sulfate) 1 mg Q4H PRN IVP PAIN 4-10 11/11/16 17:15 11/18/16 17:14 Ondansetron HCl (Zofran) 4 mg Q6H PRN IVP Nausea & Vomiting 11/11/16 17:30 12/11/16 17:29 Polyethylene Glycol (Miralax) 17 gm HSPRN PRN ORAL Constipation 11/11/16 21:00 12/11/16 20:59 Thiamine HCl/ Dextrose (Vitamin B1/D5W) 56 ml @ 112 mls/hr Q24H IVPB 11/12/16 12:00 12/12/16 11:59 11/12/16 14:24 Zolpidem Tartrate (Ambien) 5 mg HSPRN PRN ORAL Insomnia 11/11/16 21:00 12/11/16 20:59 GI: Plan Problems: (1) Transaminitis (2) Acute alcoholic intoxication (3) Profound anemia (4) Scabies Plan scabies >> s/p permethrin x 1 in ED EGD/colonoscopy scheduled for tomorrow. - CLD, NPO @ ID. monitor H&H, transfuse prn ordered utox ordered ppi fu labs Discussed with Dr. Nix. Thank you for referring this patient, we will follow. Shawnee Alcantara N.P. Nov 12, 2016 14:56
--- NOTE | 2016-11-12 15:33 | Pulmonology Progress Note ---
Assessment/Plan Problems: (1) Profound anemia (2) Acute alcoholic intoxication (3) Homelessness Assessment/Plan transfuse agin GI evaluation scheduled for EGd in am banana bag, thiamine, folic acid social welfare administrator pt/ot dc planning Subjective ROS Limited/Unobtainable: No Constitutional: Reports: no symptoms HEENT: Repors: no symptoms Respiratory: Reports: no symptoms Allergies: Coded Allergies: No Known Allergies (Unverified , 11/10/16) Objective Last 24 Hour Vital Signs Date Time Temp Pulse Resp B/P Pulse Ox O2 Delivery O2 Flow Rate FiO2 11/12/16 12:00 98.4 85 18 113/68 97 Room Air 11/12/16 08:00 98.2 93 16 107/56 97 Room Air 11/12/16 04:00 98.2 88 18 112/66 96 Room Air 11/12/16 00:00 98.1 88 18 110/71 95 Room Air 11/11/16 20:00 99.9 87 20 90/50 97 Room Air 11/11/16 16:33 83 11/11/16 16:00 98.0 90 20 120/80 98 Room Air Intake and Output 11/11/16 11/12/16 19:00 07:00 Intake Total 681 ml Output Total 400 ml Balance 281 ml IV Total 681 ml Output Urine Total 400 ml # Voids 1 Objective General Appearance: WD/WN Lines, tubes and drains: peripheral HEENT: normocephalic, anicteric Neck: non-tender, normal alignment Respiratory/Chest: chest wall non-tender, lungs clear Cardiovascular/Chest: normal peripheral pulses, normal rate Abdomen: normal bowel sounds, non tender Genitourinary/Rectal: normal genital exam, normal rectal exam Microbiology Date/Time Source Procedure Growth Status 11/10/16 14:23 Nasal Nares MRSA Culture - Final NO METHICILLIN RESISTANT STAPH AUREUS... Complete 11/10/16 14:23 Rectum VRE Culture - Final NO VANCOMYCIN RESISTANT ENTEROCOCCUS ... Complete Laboratory Tests 11/12/16 05:30: White Blood Count 9.4, Red Blood Count 2.61L, Hemoglobin 7.8L, Hematocrit 23.7L , Mean Corpuscular Volume 91, Mean Corpuscular Hemoglobin 29.8, Mean Corpuscular Hemoglobin Concent 32.9, Red Cell Distribution Width 15.0H, Platelet Count 272, Mean Platelet Volume 6.3L, Neutrophils (%) (Auto) , Lymphocytes (%) (Auto) , Monocytes (%) (Auto) , Eosinophils (%) (Auto) , Basophils (%) (Auto) , Differential Total Cells Counted 100, Neutrophils % ( Manual) 77H, Lymphocytes % (Manual) 17L, Monocytes % (Manual) 5, Eosinophils % ( Manual) 1, Basophils % (Manual) 0, Band Neutrophils 0, Platelet Estimate Adequate, Platelet Morphology Normal, Hypochromasia 1+, Anisocytosis 1+, Prothrombin Time 11.9H, Prothromb Time International Ratio 1.2H, Activated Partial Thromboplast Time 31, Sodium Level 134L, Potassium Level 4.0, Chloride Level 95L, Carbon Dioxide Level 26, Anion Gap 13, Blood Urea Nitrogen 9, Creatinine 0.8, Estimat Glomerular Filtration Rate > 60, Glucose Level 75, Calcium Level 8.1L, Phosphorus Level 2.9, Magnesium Level 1.8, Total Bilirubin 0.4, Aspartate Amino Transf (AST/SGOT) 88H, Alanine Aminotransferase (ALT/SGPT) 47H, Alkaline Phosphatase 110, Total Protein 6.7, Albumin 2.1L, Globulin 4.6, Albumin/Globulin Ratio 0.4L Current Medications Medications (Trade) Dose Ordered Sig/Courtney Route PRN Reason Start Time Stop Time Status Last Admin Dose Admin Acetaminophen (Tylenol) 650 mg Q4H PRN ORAL T>100.5 11/11/16 17:15 12/11/16 17:14 Al Hydroxide/Mg Hydroxide (Mylanta II) 30 ml Q6H PRN ORAL dyspepsia 11/11/16 17:30 12/11/16 17:29 Bisacodyl (Dulcolax) 10 mg ONCE ONCE ORAL 11/12/16 16:00 11/12/16 16:01 Chlordiazepoxide (Librium) 25 mg Q6H PRN ORAL Agitation 11/11/16 17:30 11/18/16 17:29 Dextrose (Dextrose 50%) STAT PRN IV Hypoglycemia 11/11/16 17:30 12/11/16 17:29 Diphenhydramine HCl (Benadryl Cream) 1 applic TIDPRN PRN TOPIC Itching 11/11/16 17:30 12/11/16 17:29 Diphenhydramine HCl (Benadryl) 25 mg Q6H PRN ORAL Itching 11/11/16 17:30 12/11/16 17:29 Folic Acid 1 mg/ Magnesium Sulfate 2000 mg/ Multivitamins 10 ml/Sodium Chloride 1,014.2 ml @ 125 mls/ hr Q24H IV 11/12/16 12:00 12/12/16 11:59 11/12/16 14:23 Lorazepam (Ativan 2mg/ml 1ml) 0.5 mg Q4H PRN IV For Anxiety 11/11/16 17:15 11/18/16 17:14 Magnesium Citrate (Citrate Of Magnesia) 300 ml ONCE ONCE ORAL 11/12/16 16:00 11/12/16 16:01 Morphine Sulfate (Morphine Sulfate) 1 mg Q4H PRN IVP PAIN 4-10 11/11/16 17:15 11/18/16 17:14 Ondansetron HCl (Zofran) 4 mg Q6H PRN IVP Nausea & Vomiting 11/11/16 17:30 12/11/16 17:29 Pantoprazole (Protonix) 40 mg DAILY IVP 11/13/16 09:00 12/13/16 08:59 Polyethylene Glycol (Miralax) 17 gm HSPRN PRN ORAL Constipation 11/11/16 21:00 12/11/16 20:59 Polyethylene Glycol/ Electrolytes (Nulytely) 4,000 ml ONCE ONCE ORAL 11/12/16 16:00 11/12/16 16:01 Sodium Phosphate (Fleet's Sodium Phosl Enema) 133 ml ONCE ONCE RECTAL 11/12/16 23:00 11/12/16 23:01 Thiamine HCl/ Dextrose (Vitamin B1/D5W) 56 ml @ 112 mls/hr Q24H IVPB 11/12/16 12:00 12/12/16 11:59 11/12/16 14:24 Zolpidem Tartrate (Ambien) 5 mg HSPRN PRN ORAL Insomnia 11/11/16 21:00 12/11/16 20:59 AMENA CLARK Nov 12, 2016 15:33
[2016-11-12 16:00] VITALS: BP 100/65
[2016-11-12] MEDS ORDERED: Nulytely 4L ORAL ONE (16:00)
[2016-11-12] MEDS ORDERED: Magnesium Citrate Liq Btl ORAL ONE (16:00)
[2016-11-12] MEDS ORDERED: Bisacodyl EC 5mg tab ORAL ONE (16:00)
[2016-11-12 20:00] VITALS: BP 90/59
[2016-11-12] MEDS ORDERED: Fleet's Enema 133ml RECTAL ONE (23:00)
[2016-11-13] VITALS: BP 93/60
[2016-11-13 04:00] VITALS: BP 97/64
--- NOTE | 2016-11-13 08:11 | Pulmonology Progress Note ---
Assessment/Plan Assessment/Plan ASSESSMENT acute ETOH intoxication profound anemia s/p blood transfusion acute encephalopathy 2 to alcohol intoxication transaminates likely alcoholic liver disease scabieis, s/p Rx elevated TSH PLAN OF CARE [facility] floor IVF with banana bag Librium prn declined EGD/colon declined labs for this am PPI urine tox screen monitor HH, transfuse prn peripheral blood smear with monocytic hypochromic anemia, eosinophilia CT head no acute pathology acute encephalopathy likely due to acute alcohol intoxication CXR with possible left midlung granulomatous disease, otherwise no acute findings Venous Duplex BLE negative monitor LFT, likely due to alcoholic liver disease hepatitis panel elevated TSH noted, get free T4 and T3 s/p Rx with Permethrin in ED, repeat in 7 days insisted on signing AMA risks and benefits on signing AMA were explained patient insisted on signing the form of note: the patient was seen at about 0715 before this note was written case discussed and evaluated by supervising physician Subjective Allergies: Coded Allergies: No Known Allergies (Unverified , 11/10/16) Subjective patient wants to leave AMA declined labs for this am declined EGD/colon l Objective Last 24 Hour Vital Signs Date Time Temp Pulse Resp B/P Pulse Ox O2 Delivery O2 Flow Rate FiO2 11/13/16 04:00 97.0 74 18 97/64 96 Room Air 11/13/16 00:00 97.7 74 18 93/60 96 Room Air 11/12/16 20:00 97.9 77 18 90/59 98 Room Air 11/12/16 16:00 98.8 80 16 100/65 96 Room Air 11/12/16 12:00 98.4 85 18 113/68 97 Room Air Intake and Output 11/12/16 11/13/16 19:00 07:00 Intake Total 916 ml 250 ml Balance 916 ml 250 ml Intake Oral 360 ml IV Total 556 ml 250 ml # Voids 3 # Bowel Movements 2 1 General Appearance: no acute distress, other HEENT: normocephalic, atraumatic, anicteric Respiratory/Chest: lungs clear - with moderate air entry , no respiratory distress Cardiovascular: normal peripheral pulses, normal rate, regular rhythm Abdomen: soft, non tender, non distended Genitourinary: normal external genitalia Extremities: no edema, pedal pulses normal Neurologic/Psychiatric: alert, responsive, other - slightly agitated Musculoskeletal: normal muscle bulk Microbiology Date/Time Source Procedure Growth Status 11/10/16 14:23 Nasal Nares MRSA Culture - Final NO METHICILLIN RESISTANT STAPH AUREUS... Complete 11/10/16 14:23 Rectum VRE Culture - Final NO VANCOMYCIN RESISTANT ENTEROCOCCUS ... Complete Current Medications Medications (Trade) Dose Ordered Sig/Courtney Route PRN Reason Start Time Stop Time Status Last Admin Dose Admin Acetaminophen (Tylenol) 650 mg Q4H PRN ORAL T>100.5 11/11/16 17:15 12/11/16 17:14 Al Hydroxide/Mg Hydroxide (Mylanta II) 30 ml Q6H PRN ORAL dyspepsia 11/11/16 17:30 12/11/16 17:29 Chlordiazepoxide (Librium) 25 mg Q6H PRN ORAL Agitation 11/11/16 17:30 11/18/16 17:29 Dextrose (Dextrose 50%) STAT PRN IV Hypoglycemia 11/11/16 17:30 12/11/16 17:29 Diphenhydramine HCl (Benadryl Cream) 1 applic TIDPRN PRN TOPIC Itching 11/11/16 17:30 12/11/16 17:29 Diphenhydramine HCl (Benadryl) 25 mg Q6H PRN ORAL Itching 11/11/16 17:30 12/11/16 17:29 Folic Acid 1 mg/ Magnesium Sulfate 2000 mg/ Multivitamins 10 ml/Sodium Chloride 1,014.2 ml @ 125 mls/ hr Q24H IV 11/12/16 12:00 12/12/16 11:59 11/12/16 14:23 Lorazepam (Ativan 2mg/ml 1ml) 0.5 mg Q4H PRN IV For Anxiety 11/11/16 17:15 11/18/16 17:14 Morphine Sulfate (Morphine Sulfate) 1 mg Q4H PRN IVP PAIN 4-10 11/11/16 17:15 11/18/16 17:14 Ondansetron HCl (Zofran) 4 mg Q6H PRN IVP Nausea & Vomiting 11/11/16 17:30 12/11/16 17:29 Pantoprazole (Protonix) 40 mg DAILY IVP 11/13/16 09:00 12/13/16 08:59 Polyethylene Glycol (Miralax) 17 gm HSPRN PRN ORAL Constipation 11/11/16 21:00 12/11/16 20:59 Thiamine HCl/ Dextrose (Vitamin B1/D5W) 56 ml @ 112 mls/hr Q24H IVPB 11/12/16 12:00 12/12/16 11:59 11/12/16 14:24 Zolpidem Tartrate (Ambien) 5 mg HSPRN PRN ORAL Insomnia 11/11/16 21:00 12/11/16 20:59 Hernandez (Frenchlast)Deborah NP Nov 13, 2016 08:11
[2016-11-13] MEDS ORDERED: Pantoprazole Inj IVP SCH (09:00)
--- NOTE | 2016-11-13 15:39 | Diagnostic Imaging Report ---
APPROVED REPORT CPT Code: 34006 Present Symptoms Lower Extremity Pain: Bilateral BILATERAL: Imaging reveals a patent deep venous system bilaterally. There is no evidence of thrombus within the femoral, popliteal or tibial segments. The greater saphenous veins are also within normal limits. Doppler indicates normal spontaneous flow within these segments. Incidental finding: An enlarged lymph node noted in the right common femoral vein area noted (3.2 cm x 1.2 cm x 0.9 cm).
[2016-11-14 06:39] LABS: LACTATE DEHYDROGENASE 277 U/L (135-225)
== END 2016-11-13 08:30 | disposition left against medical advice (07) | DRG 770 ==
LOC: EDBD 08:54 → EMR 09:11 → 2W 11:52 → EDBEDREQ 12:01 → 2W 15:50 → 4E 11-11 17:21
PROC: 30233N1 Transfusion of Nonautologous Red Blood Cells into Peripheral Vein, Percutaneous Approach (ICD-10-PCS; principal; 2016-11-10)
DX: F10.129 Alcohol abuse with intoxication, unspecified (principal); G93.40 Encephalopathy, unspecified; B86 Scabies; D64.9 Anemia, unspecified; Z59.0 Homelessness; R74.0 Nonspecific elevation of levels of transaminase and lactic acid dehydrogenase [LDH]; Y90.5 Blood alcohol level of 100-119 mg/100 ml; Z53.21 Procedure and treatment not carried out due to patient leaving prior to being seen by health care provider
CPT/HCPCS: 36415; 70450; 71010; 80053; 80329; 82378; 82607; 82746; 83540; 83550; 83615; 83735; 84100; 84443; 85007; 85025; 85044; 85060; 85610; 85651; 85730; 86850; 86900; 86901; 86920; 87081; 90471; 90715; 93005; 93970